=== PATIENT | male | born 1955 | race Caucasian/White ===

== ENCOUNTER 2016-12-26 19:43 | Emergency (ER) | payer OTHER ==
[2016-12-26 20:51] LABS: BASOPHIL 0.3 % (0-2); HCT 37.9 % (42.0-52.0); HGB 13.6 g/dl (13.2-18.0); LYMPHOCYTE 21.4 % (15-48); MCH 32.7 pg (25.0-31.0); MCHC 35.9 g/dL (32.0-36.0); MCV 91.1 fL (78.0-100.0); MONOCYTE 15.6 % (0-12); MPV 9.8 fL (6.0-9.5); NEUTROPHIL 61.7 % (41-80); PLT 116 K/uL (150-400); RBC 4.16 M/uL (4.70-6.00); RDW 14.9 % (11.5-14.0); WBC 3.8 K/uL (4.0-10.5)
[2016-12-26 21:12] LABS: ALBUMIN 4.6 g/dL (3.4-4.8); BILIRUBIN - TOTAL 0.3 mg/dL (0.1-1.0); CREATININE 0.8 mg/dL (0.7-1.2); GLOBULIN (CALCULATION) 2.5 g/dL (2.2-4.2); POTASSIUM 4.1 mmol/L (3.5-5.1); TOTAL PROTEIN 7.1 g/dL (6.4-8.3)
[2016-12-26 21:13] LABS: ACETAMINOPHEN (TYLENOL) < 5.0 ug/mL (10.0-30.0); SALICYLATE < 6 ug/mL (0-300)
[2016-12-26 21:16] LABS: ALCOHOL (ETOH) MEDICAL 273 mg/dL
[2016-12-26 22:07] LABS: BILIRUBIN NEGATIVE (NEGATIVE); BLOOD NEGATIVE Ery/uL (NEGATIVE); CLARITY CLEAR (CLEAR); COLOR YELLOW (YELLOW); GLUCOSE (U) NORMAL (NORMAL); KETONE (U) NEGATIVE (NEGATIVE); LEUKOCYTES NEGATIVE Leu/uL (NEGATIVE); NITRITE NEGATIVE (NEGATIVE); PROTEIN NEGATIVE (NEGATIVE); SPECIFIC GRAVITY <=1.005 (1.001-1.030); UROBILINOGEN 0.2 mg/dL (0.2-1.0); pH 6.5 (5.0-9.0)
[2016-12-26 22:15] LABS: AMPHETAMINES NEGATIVE (NEGATIVE); BARBITURATES POSITIVE (NEGATIVE); BENZODIAZEPINES NEGATIVE (NEGATIVE); COCAINE NEGATIVE (NEGATIVE); MARIJUANA (THC) NEGATIVE (NEGATIVE); METHADONE NEGATIVE (NEGATIVE); TRICYCLIC ANTIDEPRESSANT NEGATIVE (NEGATIVE)
== END 2016-12-27 10:20 | disposition other institution (70) ==
LOC: FER 19:43
PROVIDERS: Emergency Medicine Emergency Medical Services
DX: F10.129 Alcohol abuse with intoxication, unspecified (principal); F13.90 Sedative, hypnotic, or anxiolytic use, unspecified, uncomplicated; M54.9 Dorsalgia, unspecified; G89.29 Other chronic pain; E86.9 Volume depletion, unspecified; Z79.891 Long term (current) use of opiate analgesic; Y90.5 Blood alcohol level of 100-119 mg/100 ml
CPT/HCPCS: 36415; 71010; 80053; 80305; 81003; 82150; 83690; 84484; 85025; 93005; C9113; G0480; J3411; J3475